=== PATIENT | male | born 1980 | race African-American/Black ===

== ENCOUNTER 2022-03-29 06:12 | Emergency (ER) | payer SELFPAY ==
--- NOTE | ~2022-03-29 | XR_ITS ---
EXAMINATION: XR CHEST CLINICAL INFORMATION: Pain COMPARISON: None TECHNIQUE: Frontal view of the chest was obtained. FINDINGS: Lungs are hypoinflated. No definite focal consolidation is seen. No evidence of pneumothorax, significant pleural effusion, or overt pulmonary edema. Cardiac silhouette appears somewhat prominent though may be accentuated by low lung volumes. No acute osseous findings are seen. XR/XR chest 1V IMPRESSION: Low lung volumes without definite acute findings.
--- NOTE | 2022-03-29 06:16 | ECG_ITS ---
Test Reason : CP Blood Pressure : / mmHG Vent. Rate : 092 BPM Atrial Rate : 092 BPM P-R Int : 160 ms QRS Dur : 084 ms QT Int : 350 ms P-R-T Axes : 045 -17 017 degrees QTc Int : 432 ms Normal sinus rhythm Minimal voltage criteria for LVH, may be normal variant ( R in aVL ) Septal infarct , age undetermined Abnormal ECG No previous ECGs available Referred By: Generic ED Physician Electronically Signed By:PHOEBE CHU
[2022-03-29 06:20] VITALS: BP 154/109; BP 160/103; PULSE 86; RESP 22; TEMP 37.2; O2SAT 97; O2SAT 98; BMI 33.7
--- NOTE | 2022-03-29 06:34 | ED.CHESTPAIN ---
HPI - Chest Pain General Chief Complaint: Chest Pain Stated Complaint: substernal chest pain Time Seen by Provider: 03/29/22 06:33 Source: patient Mode of arrival: EMS Limitations: no limitations History of Present Illness HPI narrative: 41 yo male hx of HTN on losartan and HCTZ hasn't taken his meds in a week as [place] is visiting [place], loop recorder due to arrhythmia , prior chest pain workup one year ago [facility] in [place] that he states was negative. He notes chest pain that is pressure radiating to his back x 3 days. Today he became dizzy with vomiting. He is on the phone in no distress. He notes this has happened before when his pressure is high. He doesn't have his medications with him. He notes the pain is moderate. He denies drug use to me specifically cocaine. MD complaint: chest pain Onset (ago): day(s) (3) Timing of current episode: constant Prior episodes: Yes Onset: during rest Pain location: substernal Pain radiation: back Severity: moderate Quality: other (pressure) Relieving factors: nothing Exacerbating factors: nothing Context: other (ran out of his BP medications 1 week ago ) Associated symptoms: nausea, vomiting and other (dizziness) Treatment prior to arrival: none Related Data Previous Rx's Medication Instructions Recorded hydrochlorothiazide 50 mg tablet 50 mg PO DAILY #30 tabs 03/29/22 losartan 100 mg tablet 100 mg PO DAILY #30 tabs 03/29/22 Allergies Allergy/AdvReac Type Severity Reaction Status Date / Time No Known Allergies Allergy Verified 03/29/22 06:42 Review of Systems Review of Systems: Constitutional : No Weight loss, No Fever, No Chills ENT/Mouth : No sore throat, No Rhinorrhea Eyes: No Eye Pain, No Swelling Cardiovascular : pos Chest Pain, no SOB, no Dyspnea on Exertion, No Orthopnea, No Edema, No Palpitations Respiratory : No Cough, No Sputum Gastrointestinal : pos Nausea, pos Vomiting, No Diarrhea, No abdominal Pain, No Hematochezia, No Melena Genitourinary : No Dysuria, No Urinary Frequency Musculoskeletal : No joint pain, No Myalgias, No Joint Swelling Skin : No Skin Lesions, No rash Neuro : No Weakness, No Numbness, pos Dizziness, No Headache Psych : No Anxiety/Panic, No Depression Heme/Lymph: No Bruising, No Lymphadenopathy Endocrine : No Polyuria, No Polydipsia All other systems reviewed and are negative [facility] Past Medical History Attestation statement: The following information was validated with the patient. Medical History Arrhythmia HTN (hypertension) Social History Social History Smoked in Last 30 Days: Yes Use of substances other than those prescribed or required for medical reasons: Yes Substance Use Type: Marijuana Advance Directives: Yes Advance Directives Information Provided: Yes Advance Directives on File: No Physical Exam Vital Signs: Vital Signs: Last Vital Signs Temp 99 F 03/29/22 06:40 Pulse 80 03/29/22 06:40 Resp 23 H 03/29/22 06:40 BP 146/98 H 03/29/22 06:40 Pulse Ox 98 03/29/22 06:40 O2 Del Method 03/29/22 06:40 BMI result Body Mass Index 33.7 Appearance: Alert. Oriented X3. No acute distress. on the phone no distress Eyes: Pupils equal, round and reactive to light. ENT: Pharynx normal. Neck: Normal inspection. Neck supple. CVS: Normal heart rate and rhythm. Pulses normal. Respiratory: No respiratory distress. Breath sounds normal. Abdomen: Soft and non-tender. bounding femoral pulses Skin: Skin warm and dry. Normal skin color. Normal skin turgor. Extremities: No lower extremity edema. No calf ttp Neuro: Oriented X 3. No motor deficit. No sensory deficit. Course Course Course Narrative: nonischemic EKG, trop flat , CXR negative labs looks good, BP down feels better, resting comfortably at bedside Medications Administered Discontinued Medications Generic Name Dose Route Start Last Admin Trade Name Darylq PRN Reason Stop Dose Admin Hydrochlorothiazide 25 mg 03/29/22 07:07 03/29/22 07:15 Hydrochlorothiazide 25 Mg Tablet PO 03/29/22 07:08 25 mg ONCE ONE Administration Protocol Hydrochlorothiazide 25 mg 03/29/22 07:08 03/29/22 07:15 Hydrochlorothiazide 25 Mg Tablet PO 03/29/22 07:09 25 mg ONCE ONE Administration Protocol Losartan Potassium 100 mg 03/29/22 06:42 03/29/22 07:16 Losartan Potassium 50 Mg Tablet PO 03/29/22 06:43 100 mg ONCE ONE Administration Protocol Ondansetron HCl 4 mg 03/29/22 06:42 03/29/22 07:16 Ondansetron Hcl 4 Mg/2 Ml Vial IVPUSH 03/29/22 06:43 4 mg ONCE ONE Administration Medical Decision Making Medical Decision Making [facility] Narrative: 41 yo male hx of HTN on losartan and HCTZ hasn't taken his meds in a week as he is [place], [place] recorder due to arrhythmia , prior chest pain here with chest pain and BP 150/100. He notes pain radiates to his back but he has bounding pulses and it has been going on for 3 days and he is on his phone in no distress dissection seems unlikely. He is PERC negative to PE is unlikely. Will need EKG, troponin x 1 given 3 days of constant pain, will try his home medications for blood pressure. States he has had these same symptoms when his BP has been high in the past with negative workup. Records from [facility] requested. Dispo per results and findings. Differential Diagnosis Differential Diagnoses: The differential diagnosis associated with the presentation includes chest pain, HTN urgency, anxiety, drug abuse, cardiomyopathy, less likely dissection given he notes no tearing pain - no distress on phone and bounding pulses with symptoms x 3 days Lab Data [facility] Lab Attestation statement: I reviewed the patient's lab results. troponin is 4.3 normal with 3 days of chest pain 03/29/22 06:38 03/29/22 06:38 Labs: Lab Results 03/29/22 03/29/22 03/29/22 Range/Units 06:38 06:38 06:38 WBC 6.9 (4.8-10.8) X10*3/uL RBC 4.87 (4.60-5.80) X10*6/uL Hgb 14.0 (14.0-18.0) g/dl Hct 43.2 (42.0-52.0) % MCV 88.7 (80.0-98.0) fL MCH 28.7 (27.0-33.0) pg MCHC 32.4 (31.0-36.0) g/dl RDW 14.4 (11.0-16.0) % Plt Count 161 (160-400) X10*3/uL MPV 10.6 (9.4-12.4) fL Immature Gran % (Auto) 0.3 (0.0-0.4) % Neut % (Auto) 89.6 H (45-73) % Lymph % (Auto) 5.1 L (20-40) % [place] % (Auto) 4.6 (2-11) % Eos % (Auto) 0.3 (0-4) % Baso % (Auto) 0.1 (0-2) % Lymph # (Auto) 0.4 L (1.2-4.9) X10*3/uL [place] # (Auto) 0.3 (0.1-1.2) X10*3/uL Eos # (Auto) 0.0 (0.0-0.4) X10*3/uL Baso # (Auto) 0.0 (0.0-0.2) X10*3/uL Abs Immat Gran (auto) 0.02 (0.00-0.03) X10*3/uL Absolute Neuts (auto) 6.2 (2.0-8.3) x10*3/uL Absolute Nucleated RBC 0.000 (0.0-0.012) X10*3/uL Nucleated RBC % (auto) 0.0 (0.0-0.2) /100WBC PT (10.0-13.1) SEC INR (0.9-1.1) Sodium 140 (135-145) mmol/L Potassium 3.9 (3.3-5.1) mmol/L Chloride 106 (96-108) mmol/L Carbon Dioxide 27 (22-29) mmol/L Anion Gap 11 L (12-20) BUN 8 L (9-16) mg/dL Creatinine 1.31 (0.5-1.4) mg/dL Estim Creat Clear Calc 102.5 Estimated GFR 60 Random Glucose 97 (60-115) mg/dL Calcium 9.1 (8.4-10.2) mg/dL Total Bilirubin 1.4 H (0.0-1.0) mg/dL Direct Bilirubin 0.4 (0.0-0.5) mg/dL AST 26 (5-37) U/L ALT 38 (0-40) U/L Alkaline Phosphatase 70 (39-117) U/L Troponin I High Sens 4.3 (<3.5-35.0) ng/L Total Protein 6.8 (6.5-8.0) g/dL Albumin 3.9 (3.5-5.0) g/dL Lipase 28 (8-78) U/L COVID-19 (LIANA) (Negative) COVID-19 Clin Com 03/29/22 03/29/22 Range/Units 07:12 07:12 WBC (4.8-10.8) X10*3/uL RBC (4.60-5.80) X10*6/uL Hgb (14.0-18.0) g/dl Hct (42.0-52.0) % MCV (80.0-98.0) fL MCH (27.0-33.0) pg MCHC (31.0-36.0) g/dl RDW (11.0-16.0) % Plt Count (160-400) X10*3/uL MPV (9.4-12.4) fL Immature Gran % (Auto) (0.0-0.4) % Neut % (Auto) (45-73) % Lymph % (Auto) (20-40) % [place] % (Auto) (2-11) % Eos % (Auto) (0-4) % Baso % (Auto) (0-2) % Lymph # (Auto) (1.2-4.9) X10*3/uL [place] # (Auto) (0.1-1.2) X10*3/uL Eos # (Auto) (0.0-0.4) X10*3/uL Baso # (Auto) (0.0-0.2) X10*3/uL Abs Immat Gran (auto) (0.00-0.03) X10*3/uL Absolute Neuts (auto) (2.0-8.3) x10*3/uL Absolute Nucleated RBC (0.0-0.012) X10*3/uL Nucleated RBC % (auto) (0.0-0.2) /100WBC PT 12.0 (10.0-13.1) SEC INR 1.0 (0.9-1.1) Sodium (135-145) mmol/L Potassium (3.3-5.1) mmol/L Chloride (96-108) mmol/L Carbon Dioxide (22-29) mmol/L Anion Gap (12-20) BUN (9-16) mg/dL Creatinine (0.5-1.4) mg/dL Estim Creat Clear Calc Estimated GFR Random Glucose (60-115) mg/dL Calcium (8.4-10.2) mg/dL Total Bilirubin (0.0-1.0) mg/dL Direct Bilirubin (0.0-0.5) mg/dL AST (5-37) U/L ALT (0-40) U/L Alkaline Phosphatase (39-117) U/L Troponin I High Sens (<3.5-35.0) ng/L Total Protein (6.5-8.0) g/dL Albumin (3.5-5.0) g/dL Lipase (8-78) U/L COVID-19 (LIANA) Negative (Negative) COVID-19 Clin Com See Note Independent Interpretation I performed an independent interpretation of an: EKG and Plain X-Ray (no acute findings) Interpretation: Rate: 92 Rhythm: NSR Arboles: left , LVH Normal P waves. Normal HENRIQUE. Normal QRS complex. poor R wave progression ST T wave : no MIRIAN, no ST depression, normal qTC: normal prior studies: no acute ischemia, no priors The study has been interpreted contemporaneously by me. . External Record Review External record reviewed: Outpatient record Prescription Management I considered prescription management with: Other (HCTZ and losartan BP medications) Chronic Conditions Patient?s care impacted by: Hypertension Social Determinants Patient?s care significantly limited by Social Determinants of Health including: Other Social Determinant of Health (does not have access to healthcare here - will need Rx for BP medications) Discharge Plan Discharge Clinical Impression: Chest pain Qualifiers: Chest pain type: unspecified Qualified Code(s): R07.9 - Chest pain, unspecified HTN (hypertension) Qualifiers: Hypertension type: primary hypertension Qualified Code(s): I10 - Essential (primary) hypertension Patient Disposition: Home, Self-Care Instructions: Chest Pain (ED), Chronic Hypertension (ED) Additional Instructions: return to ED for any worsening symptoms or concerns take your medications please get a primary care doctor in the area given your chronic medical conditions return for worsening symptoms chest pain, shortness of breath, numbness weakness or any other concerns. Prescriptions: New losartan 100 mg tablet 100 mg PO DAILY Qty: 30 0RF hydrochlorothiazide 50 mg tablet 50 mg PO DAILY Qty: 30 0RF
[2022-03-29 06:40] VITALS: BP 146/98; PULSE 80; PULSE 84; RESP 23; TEMP 37.2; O2SAT 98
[2022-03-29 06:42] LABS: MANUAL DIFF FLAG NO
[2022-03-29 06:43] LABS: Basophils Percent Auto 0.1 % (0-2); Eosinophils Percent Auto 0.3 % (0-4); Hematocrit 43.2 % (42.0-52.0); Imm Gran Abs Auto 0.02 X10*3/uL (0.00-0.03); Imm Gran Pct Auto 0.3 % (0.0-0.4); Lymphocytes Absolute Auto 0.4 X10*3/uL (1.2-4.9); Lymphocytes Percent Auto 5.1 % (20-40); Mean Corpuscular HGB Conc 32.4 g/dl (31.0-36.0); Mean Corpuscular Hemoglobin 28.7 pg (27.0-33.0); Mean Corpuscular Volume 88.7 fL (80.0-98.0); Mean Platelet Volume 10.6 fL (9.4-12.4); Monocytes Absolute Auto 0.3 X10*3/uL (0.1-1.2); Monocytes Percent Auto 4.6 % (2-11); Neutrophils Absolute Auto 6.2 x10*3/uL (2.0-8.3); Neutrophils Percent Auto 89.6 % (45-73); Platelet Count 161 X10*3/uL (160-400); Red Blood Count 4.87 X10*6/uL (4.60-5.80); Red Cell Distribution Width 14.4 % (11.0-16.0); White Blood Count 6.9 X10*3/uL (4.8-10.8)
[2022-03-29 07:01] LABS: Alanine Aminotransferase 38 U/L (0-40); Albumin Level 3.9 g/dL (3.5-5.0); Alkaline Phosphatase 70 U/L (39-117); Anion Gap 11 (12-20); Aspartate Amino Transferase 26 U/L (5-37); Bilirubin Direct 0.4 mg/dL (0.0-0.5); Bilirubin Total 1.4 mg/dL (0.0-1.0); Blood Urea Nitrogen 8 mg/dL (9-16); Calcium 9.1 mg/dL (8.4-10.2); Carbon Dioxide 27 mmol/L (22-29); Chloride 106 mmol/L (96-108); Creatinine Clr Calc Pharmacy 102.5; Estimated Glomerular Filt Rate 60; Glucose Random 97 mg/dL (60-115); Lipase 28 U/L (8-78); Potassium 3.9 mmol/L (3.3-5.1); Sodium 140 mmol/L (135-145); Total Protein 6.8 g/dL (6.5-8.0)
[2022-03-29 07:09] LABS: Troponin-I High Sensitivity 4.3 ng/L (<3.5-35.0)
[2022-03-29] MEDS: hydroCHLOROthiazide 25 MG TABLET PO ×2 (07:15)
[2022-03-29] MEDS: ondansetron HCL 4 MG/2 ML VIAL IVPUSH (07:16)
[2022-03-29] MEDS: Losartan Potassium 50 MG TABLET 100 MG PO (07:16)
[2022-03-29 07:37] LABS: COVID-19 Test Negative (Negative); IDNOW Serial# 16C4AD1C
[2022-03-29 07:40] LABS: Amphetamine Screen Urine Not Detected (Not Detect); Barbiturates, Urine Not Detected (Not Detect); Benzodiazepines Screen Urine Not Detected (Not Detect); Cannabinoid Screen Urine POSITIVE (Not Detect); Cocaine Screen Urine Not Detected (Not Detect); Fentanyl, urine Not Detected (Not Detect); Opiate Screen Urine Not Detected (Not Detect); Phencyclidine Screen Urine Not Detected (Not Detect)
[2022-03-29 08:00] VITALS: BP 116/78; PULSE 78
== END 2022-03-29 08:16 | disposition home or self-care (01) ==
PROVIDERS: Emergency Provider Emergency Medicine
DX: R07.89 Other chest pain (principal); R42 Dizziness and giddiness; I10 Essential (primary) hypertension; Z20.822 Contact with and (suspected) exposure to COVID-19; Z20.828 Contact with and (suspected) exposure to other viral communicable diseases; Z79.899 Other long term (current) drug therapy
CPT/HCPCS: 36415; 71045; 80048; 80076; 80307; 83690; 84484; 85025; 85610; 87635; 93005; 96374; 99284; 99285; J2405

== ENCOUNTER 2023-07-17 08:33 | Emergency (ER) | payer OTHER, SELFPAY ==
--- NOTE | ~2023-07-17 | XR_ITS ---
EXAMINATION: XR CHEST CLINICAL INFORMATION: Chest pain. COMPARISON: 03/29/2022 TECHNIQUE: 2 views of the chest were obtained. FINDINGS: Low lung volumes. No focal consolidation. No pleural effusion. Cardiac silhouette is unchanged. XR/XR chest 2V IMPRESSION: No acute abnormality.
--- NOTE | ~2023-07-17 | US_ITS ---
EXAMINATION: US VENOUS ULTRASOUND WITH DOPPLER LOWER EXTREMITY, LEFT CLINICAL INFORMATION: Calf pain. COMPARISON: None available. TECHNIQUE: Ultrasound of the deep veins is performed from the hip to the calf with compression sonography and color and pulse Doppler assessment. Spectral analysis with color-flow imaging is performed. FINDINGS: There is normal venous compression and respiratory variation and augmented flow. The visualized common femoral vein, superficial femoral vein, profunda femoral vein, popliteal vein, and the trifurcation region shows no evidence of deep venous thrombosis. If the patient's symptoms persist, followup ultrasound in 5 days 7 days might be of value to exclude proximal propagation from a non-visualized calf vein. US/US venous duplex LE LT IMPRESSION: No DVT demonstrated in the left lower extremity.
[2023-07-17 08:37] VITALS: BP 123/84; PULSE 86; RESP 18; TEMP 36.6; O2SAT 98; BMI 32.2
--- NOTE | 2023-07-17 08:43 | ECG_ITS ---
Test Reason : cp Blood Pressure : / mmHG Vent. Rate : 084 BPM Atrial Rate : 084 BPM P-R Int : 168 ms QRS Dur : 092 ms QT Int : 364 ms P-R-T Axes : 042 -13 012 degrees QTc Int : 430 ms Normal sinus rhythm Minimal voltage criteria for LVH, may be normal variant ( R in aVL ) Septal infarct (cited on or before 29-MAR-2022) Abnormal ECG When compared with ECG of 29-MAR-2022 06:18, Questionable change in initial forces of Septal leads Referred By: Generic ED Physician Electronically Signed By:YI PALACIO MD
[2023-07-17 08:56] LABS: MANUAL DIFF FLAG NO
[2023-07-17 08:57] LABS: Basophils Percent Auto 0.4 % (0-2); Eosinophils Absolute Auto 0.1 X10*3/uL (0.0-0.4); Hematocrit 41.8 % (42.0-52.0); Hemoglobin 14.4 g/dl (14.0-18.0); Lymphocytes Percent Auto 42.1 % (20-40); Mean Corpuscular HGB Conc 34.4 g/dl (31.0-36.0); Mean Corpuscular Hemoglobin 30.3 pg (27.0-33.0); Mean Corpuscular Volume 87.8 fL (80.0-98.0); Mean Platelet Volume 10.5 fL (9.4-12.4); Monocytes Absolute Auto 0.3 X10*3/uL (0.1-1.2); Monocytes Percent Auto 6.7 % (2-11); Neutrophils Absolute Auto 2.4 x10*3/uL (2.0-8.3); Neutrophils Percent Auto 49.8 % (45-73); Platelet Count 181 X10*3/uL (160-400); Red Blood Count 4.76 X10*6/uL (4.60-5.80); White Blood Count 4.8 X10*3/uL (4.8-10.8)
[2023-07-17 09:11] LABS: Anion Gap 12 (12-20); Blood Urea Nitrogen 14 mg/dL (9-16); Calcium 9.8 mg/dL (8.4-10.2); Carbon Dioxide 29 mmol/L (22-29); Chloride 104 mmol/L (96-108); Creatinine Clr Calc Pharmacy 97.4; Estimated Glomerular Filt Rate 59; Glucose Random 97 mg/dL (60-115); Potassium 3.2 mmol/L (3.3-5.1); Sodium 142 mmol/L (135-145)
[2023-07-17 09:21] LABS: Troponin-I High Sensitivity 2.9 ng/L (<3.5-35.0)
--- NOTE | 2023-07-17 09:28 | PC.NURSE ---
patient with insertable media monitor placed september 2021 device name Linq 2, in [facility]. Patient reports left side of his heart does not work right
[2023-07-17 09:32] VITALS: BP 114/72; PULSE 69; RESP 18; TEMP 36.6; O2SAT 95
--- NOTE | 2023-07-17 09:35 | ED_ITS ---
HPI - General Adult General Chief complaint: General Medical Stated complaint: L side body pain Time Seen by Provider: 07/17/23 09:35 Source: patient Mode of arrival: ambulatory Limitations: no limitations History of Present Illness HPI narrative: Patient is a 43-year-old male with history of hypertension, loop recorder presenting to the emergency department with complaint of pain to the left side of his torso radiating down his left leg for the past 4 days. States that he woke up with the pain. Denies any fall or other trauma. He complains of numbness/tingling to his anterior lower leg and foot. Reports pain to left calf. States he has taken Aleve, Tylenol, Rudi[place] with the pain is sharp and severe. States he has not seen a propeller mechanic in about 2 years, as he moved here from [place]. He is currently taking medication for his blood pressure. Denies any abdominal pain, nausea, vomiting, diarrhea, constipation. Denies shortness of breath, cough, fevers. He denies any known tick bites or rashes, states he does not spend time outdoors. MD complaint: left side pain Onset (ago): day(s) Radiation: distal Severity: severe Quality: sharp Pain Consistency: constant Relieving factors: none Exacerbating factors: movement Associated symptoms: other (numbness/tingling L lower leg) Treatments prior to arrival: NSAID and other Related Data Previous Rx's ?Medication ?Instructions ?Recorded hydrochlorothiazide 50 mg tablet 50 mg PO DAILY #30 tabs 03/29/22 losartan 100 mg tablet 100 mg PO DAILY #30 tabs 03/29/22 cyclobenzaprine 5 mg tablet 5 mg PO TID PRN muscle spasm #10 07/17/23 tabs lidocaine 5 % topical patch 1 patch topical DAILY #15 ea 07/17/23 Allergies Allergy/AdvReac Type Severity Reaction Status Date / Time No Known Allergies Allergy Verified 07/17/23 08:38 Review of Systems 2 Review of Systems: As per HPI. Yes all other systems are reviewed and are negative Constitutional: Constitutional: Reports as per HPI [facility] Past Medical History Medical History Arrhythmia HTN (hypertension) Social History Social History Alcohol intake: former Smoked in Last 30 Days: Yes Substance Use Type: Marijuana Substance Use Frequency: Chronic Longstanding Advance Directives: No Advance Directives Information Provided: Yes Physical Exam ED Vital Signs: Vital Signs - 24 hr 07/17/23 08:37 07/17/23 09:32 Temperature 98 F 98 F Pulse Rate 86 69 Respiratory Rate 18 18 Blood Pressure 123/84 114/72 Pulse Oximetry 98 95 Oxygen Delivery Method Room Air Room Air BMI result Body Mass Index 32.2 Vital signs have been reviewed and appear to be correct. Blood pressure normal. Heart rate normal. Respiratory rate normal. Temperature normal. Oxygen saturation normal. Const General: cooperative, healthy appearing and no acute distress Orientation/consciousness: oriented to person, oriented to place, oriented to time and patient oriented x3 Limitations: no limitations HENMT Head: Yes normocephalic and Yes atraumatic Ears: external ears normal General nose exam: Normal external nose present Face and sinus: Yes face symmetric Mouth: oropharynx normal and moist mucous membranes Throat: Yes uvula midline Eyes Pupils: Equal, round and reactive pupils present Neck Neck: Yes normal visual inspection, Yes no meningeal signs and Yes supple Chest Chest palpation & inspection: normal inspection of the chest and tenderness pectoral muscle on the left and costal cartilage left anterior-axillary line Resp Effort & Inspection: normal respiratory effort and able to speak in complete sentences Auscultation: clear to auscultation bilaterally Cardio Jugular venous distension: no JVD Rate: regular rate Rhythm: regular rhythm Heart sounds: S1 normal heart sound present and S2 normal heart sound present Peripheral pulses: Peripheral pulses 2+ throughout GI Palpation (GI): Soft to palpation and nontender Auscultation: normoactive bowel sounds General: Yes no CVA tenderness Back/Spine/Pelvis Back: no CVA tenderness Skin General skin exam: elasticity normal and turgor normal Neuro General: oriented to person, oriented to place, oriented to time, patient oriented x3, No gait normal (slight limp), tone normal, moves all extremities, Normal light touch and pain sensation, no meningeal signs, no focal motor deficits, CN's II-XI intact bilaterally and deep tendon reflexes 2+ bilaterally Cranial nerves: Yes Equal, round and reactive pupils present Cognition (Neuro): normal cognition Motor exam (neuro): 5/5 motor strength present throughout, Pronator motor function not present, no tremor noted, no asterixis, Motor fasciculations not present, Normal motor muscle tone present throughout and Motor abnormalities not present Extrem General: Yes normal to inspection, Yes full ROM, Yes capillary refill normal and Yes no pedal edema Right upper extremity: normal to inspection, full ROM and normal capillary refill Left upper extremity: normal to inspection, full ROM and normal capillary refill Right lower extremity: normal to inspection, full ROM and normal capillary refill Left lower extremity: normal to inspection, full ROM, normal capillary refill and lower leg Details: normal to inspection, tenderness Location: of the posterior calf and other (anterior lower leg) and no edema; no erythema, no localized swelling, no palpable cords and no unusual warmth Psych Mental Status: mental status grossly normal Affect: normal affect Thought process: Normal thought process present Medications Administered Discontinued Medications Generic Name Dose Route Start Last Admin Trade Name Freq PRN Reason Stop Dose Admin Ketorolac Tromethamine 30 mg 07/17/23 09:52 07/17/23 10:02 Ketorolac Tromethamine 30 Mg/Ml Vial IM 07/17/23 09:53 30 mg ONCE ONE Administration Potassium Chloride 20 meq 07/17/23 10:17 07/17/23 10:33 Potassium Chloride Er 20 Meq Tab.Er.Prt PO 07/17/23 10:18 20 meq ONCE ONE Administration Medical Decision Making Medical Decision Making MDM Narrative: Patient is a 43-year-old male with history of hypertension, loop recorder presenting to the emergency department with complaint of pain to the left side of his torso radiating down his left leg for the past 4 days. On exam patient is awake, A+Ox3, VS WNL, afebrile, normal neurological exam without focal deficits, physical exam findings as above. Given reported symptoms and physical exam findings, initial differential includes DVT, musculoskeletal pain, electrolyte abnormality. Unlikely pneumonia, pneumothorax, ACS. EKG shows normal sinus rhythm. Labs notable for mild hypokalemia, negative troponin, otherwise unremarkable. PO potassium ordered. X-ray chest notable for no evidence of cardiomegaly, pneumonia, pneumothorax, or other acute abnormality. No evidence of DVT left lower extremity ultrasound. My interpretation is in agreement with the radiologist's interpretation. Results discussed with patient and all questions answered. Advised patient he may need to alternate medications such as Tylenol and ibuprofen every 3 hours for better pain control. Patient feels his symptoms would improve with a muscle relaxer, will discharge with prescription for cyclobenzaprine and topical lidocaine patches. Patient does not currently have a primary care provider or propeller mechanic in this area. Patient provided with resources for establishing care with both. Return precautions discussed at bedside. Patient verbalized understanding of and agreement plan. Differential Diagnosis Differential Diagnoses: The differential diagnosis associated with the presentation includes As per [facility]. Admission/Observation Consideration of admission/observation: Escalation of care including admission/observation considered Patient would have been admitted to the hospital had their work up had any findings where hospital admission was appropriate and their clinical presentation warranted hospital admission. Lab Data [facility] Lab Attestation statement: I reviewed the patient's lab results. As per MDM. 07/17/23 08:51 07/17/23 08:51 Labs: Lab Results 07/17/23 Range/Units 08:51 WBC 4.8 (4.8-10.8) X10*3/uL RBC 4.76 (4.60-5.80) X10*6/uL Hgb 14.4 (14.0-18.0) g/dl Hct 41.8 L (42.0-52.0) % MCV 87.8 (80.0-98.0) fL MCH 30.3 (27.0-33.0) pg MCHC 34.4 (31.0-36.0) g/dl RDW 13.0 (11.0-16.0) % Plt Count 181 (160-400) X10*3/uL MPV 10.5 (9.4-12.4) fL Immature Gran % (Auto) 0.0 (0.0-0.4) % Neut % (Auto) 49.8 (45-73) % Lymph % (Auto) 42.1 H (20-40) % [place] % (Auto) 6.7 (2-11) % Eos % (Auto) 1.0 (0-4) % Baso % (Auto) 0.4 (0-2) % Lymph # (Auto) 2.0 (1.2-4.9) X10*3/uL [place] # (Auto) 0.3 (0.1-1.2) X10*3/uL Eos # (Auto) 0.1 (0.0-0.4) X10*3/uL Baso # (Auto) 0.0 (0.0-0.2) X10*3/uL Abs Immat Gran (auto) 0.00 (0.00-0.03) X10*3/uL Absolute Neuts (auto) 2.4 (2.0-8.3) x10*3/uL Absolute Nucleated RBC 0.000 (0.0-0.012) X10*3/uL Nucleated RBC % (auto) 0.0 (0.0-0.2) /100WBC Sodium 142 (135-145) mmol/L Potassium 3.2 L (3.3-5.1) mmol/L Chloride 104 (96-108) mmol/L Carbon Dioxide 29 (22-29) mmol/L Anion Gap 12 (12-20) BUN 14 (9-16) mg/dL Creatinine 1.32 (0.5-1.4) mg/dL Estim Creat Clear Calc 97.4 Estimated GFR 59 Random Glucose 97 (60-115) mg/dL Calcium 9.8 D (8.4-10.2) mg/dL Troponin I High Sens 2.9 (<3.5-35.0) ng/L Independent Interpretation I performed an independent interpretation of an: EKG (Normal sinus rhythm, rate 84 beats per minute, normal MI interval and QTC), Plain X-Ray and Ultrasound Interpretation: X-ray chest notable for no evidence of cardiomegaly, pneumonia, pneumothorax, or other acute abnormality. No DVT on left lower extremity ultrasound. Radiology Impression Discussion of test interpretation with radiology: I have reviewed the radiologist's reading. Radiologist Impression: XR/XR chest 2V IMPRESSION: No acute abnormality. US/US venous duplex LE LT IMPRESSION: No DVT demonstrated in the left lower extremity. External Record Review External record reviewed: Inpatient record, Office record and Outpatient record Prescription Management I considered prescription management with: Pain Medication and Other Discharge Plan Discharge Clinical Impression: Left-sided chest pain, Left leg pain Patient Disposition: Home, Self-Care Instructions: Noncardiac Chest Pain (ED), Leg Pain (ED) Additional Instructions: You were evaluated in the emergency department today for left-sided pain. Your evaluation did not reveal evidence of conditions requiring emergent medical treatment at this time. You are being prescribed cyclobenzaprine which is a muscle relaxer that you can take every 8 hours as needed. You are also being prescribed topical lidocaine patches before which you can wear for up to 12 hours in a 24 hour period, do not apply heat directly over the patches. It is important that you establish care with a primary care provider in your provided with resources for this in the emergency department today. It is also important that you establish care with a propeller mechanic in this area, you are being referred to [facility] Cardiology, please call their office to schedule an appointment. Return to the emergency department if you develop increasing pain, difficulty breathing or shortness of breath, dizziness or lightheadedness, change of color in your extremities or any other concerning symptoms. Prescriptions: New lidocaine 5 % adhesive patch,medicated 1 patch topical DAILY Qty: 15 0RF Rx Instructions: leave on most painful area for up to 12 hrs cyclobenzaprine 5 mg tablet 5 mg PO TID PRN (Reason: muscle spasm) Qty: 10 0RF No Action losartan 100 mg tablet 100 mg PO DAILY Qty: 30 0RF hydrochlorothiazide 50 mg tablet 50 mg PO DAILY Qty: 30 0RF Referrals: [facility] Cardiovascular Services [Provider Group] Print Language: Nigerian
[2023-07-17] MEDS: Ketorolac Tromethamine 30 MG/ML VIAL IM (10:02)
[2023-07-17] MEDS: Potassium Chloride ER 20 MEQ TAB.ER.PRT PO (10:33)
[2023-07-17 12:38] VITALS: BP 114/72; PULSE 69; RESP 18; TEMP 36.6; O2SAT 95
== END 2023-07-17 12:39 | disposition home or self-care (01) ==
PROVIDERS: Emergency Provider Emergency Medicine
DX: R07.89 Other chest pain (principal); M79.10 Myalgia, unspecified site; M79.605 Pain in left leg; R60.0 Localized edema; Z79.899 Other long term (current) drug therapy
CPT/HCPCS: 36415; 71046; 80048; 84484; 85025; 93005; 93971; 96372; 99284; J1885

== ENCOUNTER → 2023-07-17 08:43 | Outpatient (BNV) | payer MEDICAID, SELFPAY | PROVIDERS: Emergency Provider Emergency Medicine; Visit Provider Internal Medicine Cardiovascular Disease | DX: R94.31 Abnormal electrocardiogram [ECG] [EKG] (principal) | CPT/HCPCS: 93010 ==

== ENCOUNTER 2023-09-23 17:23 | Emergency (ER) | payer OTHER, SELFPAY ==
--- NOTE | ~2023-09-23 | CT_ITS ---
EXAMINATION: CT ABDOMEN AND PELVIS WITH CONTRAST CLINICAL INFORMATION: Bilateral lower abdominal pain and tenderness COMPARISON: None available. TECHNIQUE: Multidetector volumetric images were obtained from the superior aspect of the liver through the pubic symphysis following administration 85 mL of Omnipaque 350 intravenous contrast. Sagittal and coronal reformatted images were obtained on the technologist's workstation. Oral contrast: No This CT examination was performed using dose optimization techniques as appropriate, variously including the following: *Automated exposure control *Adjustment of mA and/or kV according to patient size (this includes techniques or standardized protocols for targeted exams where dose is matched to indication/reason for exam; i.e. extremities or head) *Use of iterative reconstruction technique DLP: 661 mGy-cm FINDINGS: LUNG BASES: The visualized lung bases are unremarkable. LIVER, GALLBLADDER, AND BILIARY TREE: The liver is normal in size, shape, and attenuation. No focal hepatic lesion or biliary ductal dilatation is present. The gallbladder is unremarkable with no evidence of radiopaque gallstones, gallbladder wall thickening, or obvious pericholecystic inflammatory changes. PANCREAS: Unremarkable. SPLEEN: Unremarkable. ADRENAL GLANDS: Unremarkable. KIDNEYS AND URETERS: The kidneys are normal in size, shape, and attenuation. No hydronephrosis, hydroureter, or calculi seen. No perinephric stranding. BLADDER: Unremarkable. GASTROINTESTINAL TRACT: The small and large bowel are unremarkable. The appendix is unremarkable. ABDOMINAL WALL: Small fat-containing umbilical hernia. LYMPH NODES: Normal. VASCULAR: Unremarkable. PELVIC VISCERA: Prostate gland is moderately enlarged. OSSEOUS STRUCTURES: Unremarkable. CT/CT abdomen pelvis w IV con IMPRESSION: 1. No acute process. 2. Small fat-containing umbilical hernia. 3. Prostate gland is moderately enlarged.
[2023-09-23 17:25] VITALS: BP 134/86; PULSE 77; RESP 16; TEMP 36.8; O2SAT 97; BMI 32.3
[2023-09-23 17:46] LABS: Appearance Urine Clear; Color Urine Yellow; Glucose Urine UA Negative (Negative); Leukocyte Esterase Urine Moderate (2+) (Negative); Nitrite Urine Negative (Negative); PH 7.5 (5.0-9.0); UMIC TRIGGER UACC YES; Urine Blood Negative (Negative); Urine Ketones Negative (Negative); Urine Protein Negative (Neg-Trace)
[2023-09-23 17:51] LABS: Bacteria Urine None Seen (None Seen); Hyaline Casts Urine 0-2 /LPF (0-2); RBC Urine 0-2 /HPF (0-2); Squamous Epithelial Cell Urine 0-2 /HPF (0-2); UACC Culture Trigger YES; WBC Urine >50 /HPF (0-5)
--- NOTE | 2023-09-23 18:00 | ED_ITS ---
HPI - General Adult General Chief complaint: Abdominal Pain Stated complaint: side pain/both Time Seen by Provider: 09/23/23 18:00 History of Present Illness ED Provider: Merry MENDOZA narrative: The patient is a 43-year-old man who says that for the last week he has had a sense of difficulty urinating. He also feels that he has had trouble passing bowel movements. He has had no numbness or tingling or weakness in his legs. He has not had any fevers. He has never had a urinary tract infection in the past. He is circumcised. He says that he has only 1 sexual partner and that they are monogamous with each other. The patient has a loop recorder that he says was implanted in 2020 at a hospital in [facility]. He also has had an episode of having surgery on his right arm. He says that he walks with a limp. Related Data Previous Rx's ?Medication ?Instructions ?Recorded hydrochlorothiazide 50 mg tablet 50 mg PO DAILY #30 tabs 03/29/22 losartan 100 mg tablet 100 mg PO DAILY #30 tabs 03/29/22 cyclobenzaprine 5 mg tablet 5 mg PO TID PRN muscle spasm #10 07/17/23 tabs lidocaine 5 % topical patch 1 patch topical DAILY #15 ea 07/17/23 hydrochlorothiazide 25 mg tablet 25 mg PO DAILY #30 tabs 09/23/23 levofloxacin 500 mg tablet 500 mg PO DAILY #14 tabs 09/23/23 Allergies Allergy/AdvReac Type Severity Reaction Status Date / Time No Known Allergies Allergy Verified 09/23/23 17:27 Review of Systems 2 Review of Systems: Yes all other systems are reviewed and are negative PENDING SALE TO [facility] Past Medical History Medical History Arrhythmia HTN (hypertension) Social History Social History Alcohol intake: former Smoked in Last 30 Days: No Use of substances other than those prescribed or required for medical reasons: No Substance Use Type: Marijuana Advance Directives: No Advance Directives Information Provided: No Do you have a plan to hurt others: No Plan Physical Exam ED Vital Signs: Vital Signs - 24 hr 09/23/23 17:25 09/23/23 22:00 09/23/23 23:09 Temperature 98.3 F 97.8 F 97.8 F Pulse Rate 77 54 54 Respiratory Rate 16 16 16 Blood Pressure 134/86 124/78 124/78 Pulse Oximetry 97 99 99 Oxygen Delivery Method Room Air Room Air Room Air BMI result Body Mass Index 32.3 Const Other: The patient has a large and muscular 43-year-old. He does not appear in obvious distress. HENMT Other: Face is symmetrical. Mucous membranes moist. Eyes Other: Pupils are round equal, conjunctivae are clear Neck Other: No JVD, moving his neck easily Chest Chest palpation & inspection: normal inspection of the chest Breast/axilla palpation: normal palpation of the breasts Resp Effort & Inspection: normal respiratory effort Auscultation: clear to auscultation bilaterally Cardio Rate: regular rate Rhythm: regular rhythm Heart sounds: S1 normal heart sound present and S2 normal heart sound present GI Other: The patient has diffuse tenderness across his lower abdomen. Rectal exam revealed prostatic tenderness. Other: The patient is a circumcised male with unremarkable external genitalia. Skin Other: Skin is dry and unremarkable Neuro Other: The patient is awake and alert with a normal mental status. Cranial nerves are grossly intact. He moves all extremities normally with normal sensation. He is grossly neurologically intact Extrem Other: No peripheral edema Medications Administered Discontinued Medications Generic Name Dose Route Start Last Admin Trade Name Freq PRN Reason Stop Dose Admin Sodium Chloride 1,000 mls @ 999 mls/hr 09/23/23 18:15 09/23/23 21:11 Ns IV 09/23/23 19:15 Infused .Q1H1M STEVEN Infusion Ceftriaxone Sodium 1 gm/ 50 mls @ 100 mls/hr 09/23/23 20:21 09/23/23 21:00 Sodium Chloride IV 09/23/23 20:50 Infused ONCE ONE Infusion Iohexol 100 ml 09/23/23 19:27 09/23/23 19:28 Iohexol 350 Mg/Ml 100 Ml Infus..Btl IV 09/23/23 19:28 85 ml ONCE ONE Administration Ketorolac Tromethamine 10 mg 09/23/23 20:21 09/23/23 20:28 Ketorolac Tromethamine 15 Mg/Ml Vial IVPUSH 09/23/23 20:22 10 mg ONCE ONE Administration Levofloxacin 500 mg 09/23/23 20:52 09/23/23 21:17 Levofloxacin 500 Mg Tablet PO 09/23/23 20:53 500 mg ONCE ONE Administration Lidocaine HCl 10 ml 09/23/23 21:42 09/23/23 22:18 Lidocaine Hcl 2 % Urojet 10 Ml Jel.Pf.Demarcus TOPICAL 09/23/23 21:43 10 ml ONCE ONE Administration Phenazopyridine HCl 200 mg 09/23/23 20:52 09/23/23 21:17 Phenazopyridine Hcl 200 Mg Tablet PO 09/23/23 20:53 200 mg ONCE ONE Administration Procedures Catheter Insertion (Urinary) Date of insertion: 09/23/23 Time of insertion: 23:00 Reason for placing: Yes Reason for placing indwelling catheter: Acute urinary retention Bladder scan/ultrasound used before catheterization: Yes Estimated amount of urine (mLs): 600 Antiseptic solution prep: Povidone-Iodine Topical anesthesia used: Yes Catheter type/location: Urethral Size (Prydeinig): 16 Catheter balloon size (mL): 5 Catheter balloon amount: 5 Results: successfully catheterized-immediate flow Procedure performed: without complications Medical Decision Making Medical Decision Making MDM Narrative: The patient is a 43-year-old male who presents with difficulty urinating. He was able to produce a urine specimen initially and this looks like he probably had a UTI. Was also able to produce a small 2nd urine specimen which was sent for GC and chlamydia. The patient looks quite uncomfortable however and ultimately it seemed like he was distinctly retaining urine. He had had a negative CT of the abdomen and pelvis (this showed a large prostate but no definite acute findings). Since ultimately the patient seemed really unable to void and looked extremely uncomfortable to having a urinary catheter placed. Under usual sterile conditions and using a Uro jet I placed a 16 Prydeinig urinary catheter with a good return of urine and complete relief for the patient. The patient had prostatic tenderness on rectal exam. Perhaps this patient has prostatitis although he does not have a fever or a white count. The patient had initially been given 1 g of ceftriaxone IV but he was also given 500 mg of levofloxacin orally. He will be discharged with 2 weeks of levofloxacin 500 mg daily. He does not have a local doctor. He is referred Urology. He also requested that I provide a prescription to allow him to continue his usual hydrochlorothiazide. I wrote for 25 mg of hydrochlorothiazide for 1 month. Lab Data 09/23/23 18:24 09/23/23 18:24 Labs: Lab Results 09/23/23 09/23/23 Range/Units 17:38 18:24 WBC 5.1 (4.8-10.8) X10*3/uL RBC 4.42 L (4.60-5.80) X10*6/uL Hgb 12.9 L (14.0-18.0) g/dl Hct 38.7 L (42.0-52.0) % MCV 87.6 (80.0-98.0) fL MCH 29.2 (27.0-33.0) pg MCHC 33.3 (31.0-36.0) g/dl RDW 12.9 (11.0-16.0) % Plt Count 202 (160-400) X10*3/uL MPV 10.7 (9.4-12.4) fL Immature Gran % (Auto) 0.8 H (0.0-0.4) % Neut % (Auto) 54.1 (45-73) % Lymph % (Auto) 36.1 (20-40) % Hayes % (Auto) 7.6 (2-11) % Eos % (Auto) 0.8 (0-4) % Baso % (Auto) 0.6 (0-2) % Lymph # (Auto) 1.9 (1.2-4.9) X10*3/uL Hayes # (Auto) 0.4 (0.1-1.2) X10*3/uL Eos # (Auto) 0.0 (0.0-0.4) X10*3/uL Baso # (Auto) 0.0 (0.0-0.2) X10*3/uL Abs Immat Gran (auto) 0.04 H (0.00-0.03) X10*3/uL Absolute Neuts (auto) 2.8 (2.0-8.3) x10*3/uL Absolute Nucleated RBC 0.000 (0.0-0.012) X10*3/uL Nucleated RBC % (auto) 0.0 (0.0-0.2) /100WBC Sodium 141 (135-145) mmol/L Potassium 3.5 (3.3-5.1) mmol/L Chloride 109 H (96-108) mmol/L Carbon Dioxide 22 (22-29) mmol/L Anion Gap 14 (12-20) BUN 10 (9-16) mg/dL Creatinine 1.20 (0.5-1.4) mg/dL Estim Creat Clear Calc 107.2 Estimated GFR > 60 Random Glucose 87 (60-115) mg/dL Calcium 9.1 D (8.4-10.2) mg/dL Total Bilirubin 0.7 (0.0-1.0) mg/dL Direct Bilirubin 0.2 (0.0-0.5) mg/dL AST 23 (5-37) U/L ALT 19 (0-40) U/L Alkaline Phosphatase 60 (39-117) U/L C-Reactive Protein 0.24 (< or = 0.50) mg/dL Total Protein 7.0 (6.5-8.0) g/dL Albumin 3.7 (3.5-5.0) g/dL Lipase 47 (8-78) U/L Urine Color Yellow Urine Appearance Clear Urine pH 7.5 (5.0-9.0) Ur Specific Amber 1.010 (1.005-1.025) Urine Protein Negative (Neg-Trace) mg/dL Urine Glucose (UA) Negative (Negative) mg/dL Urine Ketones Negative (Negative) mg/dL Urine Blood Negative (Negative) Urine Nitrite Negative (Negative) Ur Leukocyte Esterase Moderate (2+) H (Negative) Urine RBC 0-2 (0-2) /HPF Urine WBC >50 H (0-5) /HPF Ur Squamous Epith Cells 0-2 (0-2) /HPF Urine Bacteria None Seen (None Seen) Hyaline Casts 0-2 (0-2) /LPF Discharge Plan Discharge Clinical Impression: Acute prostatitis, Acute urinary retention Patient Disposition: Home, Self-Care Instructions: Prostatitis (ED), Kamara Catheter Placement and Care (ED) Additional Instructions: You seemed to have urine infection which caused you to retain urine so that you needed a catheter. I think the infection may be related to your prostate gland. This can be called prostatitis. Please take the antibiotic levofloxacin daily. Please plan on contacting the urology office on Monday morning to make a follow up appointment to see how you are doing and to discuss when you might be able to get the catheter removed. Also work on getting a new primary care doctor. You may try the [facility]. I have also sent a prescription for your regular blood pressure medication, hydrochlorothiazide. Return to the emergency room if significantly worse. Prescriptions: New levofloxacin 500 mg tablet 500 mg PO DAILY Qty: 14 0RF hydrochlorothiazide 25 mg tablet 25 mg PO DAILY Qty: 30 0RF No Action losartan 100 mg tablet 100 mg PO DAILY Qty: 30 0RF hydrochlorothiazide 50 mg tablet 50 mg PO DAILY Qty: 30 0RF lidocaine 5 % adhesive patch,medicated 1 patch topical DAILY Qty: 15 0RF Rx Instructions: leave on most painful area for up to 12 hrs cyclobenzaprine 5 mg tablet 5 mg PO TID PRN (Reason: muscle spasm) Qty: 10 0RF Referrals: [facility] [Provider Group] (Needs new PCP) Isabelle Hays MD [Physician] - (possible prostatitis, urinary retention) Interventions: ED Discharge Assessment Last Done: 09/23/23 23:09 Discharge Date/Time: 09/23/23 23:10 Print Language: Icelandic
--- NOTE | 2023-09-23 18:07 | ECG_ITS ---
Test Reason : PALPITATIONS Blood Pressure : / mmHG Vent. Rate : 055 BPM Atrial Rate : 055 BPM P-R Int : 206 ms QRS Dur : 086 ms QT Int : 406 ms P-R-T Axes : 068 -12 012 degrees QTc Int : 388 ms Sinus bradycardia with sinus arrhythmia Otherwise normal ECG When compared with ECG of 17-JUL-2023 08:43, Vent. rate has decreased BY 29 BPM Referred By: Branden Sousa Electronically Signed By:YI PALACIO MD
[2023-09-23] MEDS: 0.9 % Sodium Chloride 1,000 ML 999 ML IV (18:25)
[2023-09-23 18:28] LABS: MANUAL DIFF FLAG NO
--- NOTE | 2023-09-23 18:29 | PC.NURSE ---
a&ox4. vss and up to date. pt from triage d/t not being able to have a BM and difficulty urinating x 1 week. pt verbalizing he needs to strain in order to urinate. bladder scan/PVR scan preformed in triage. good effect noted. abd distention noted. abd tender w/ palpation. pt denies any fever/chills. 20gIV placed in the left AC - labs obtained/sent to lab. IVF administered per provider order. pt waiting for CT to be completed at this time. plan of care ongoing. call lau placed within reach.
[2023-09-23 18:44] LABS: Basophils Percent Auto 0.6 % (0-2); Eosinophils Percent Auto 0.8 % (0-4); Hematocrit 38.7 % (42.0-52.0); Hemoglobin 12.9 g/dl (14.0-18.0); Imm Gran Abs Auto 0.04 X10*3/uL (0.00-0.03); Imm Gran Pct Auto 0.8 % (0.0-0.4); Lymphocytes Absolute Auto 1.9 X10*3/uL (1.2-4.9); Lymphocytes Percent Auto 36.1 % (20-40); Mean Corpuscular HGB Conc 33.3 g/dl (31.0-36.0); Mean Corpuscular Hemoglobin 29.2 pg (27.0-33.0); Mean Corpuscular Volume 87.6 fL (80.0-98.0); Mean Platelet Volume 10.7 fL (9.4-12.4); Monocytes Absolute Auto 0.4 X10*3/uL (0.1-1.2); Monocytes Percent Auto 7.6 % (2-11); Neutrophils Absolute Auto 2.8 x10*3/uL (2.0-8.3); Neutrophils Percent Auto 54.1 % (45-73); Platelet Count 202 X10*3/uL (160-400); Red Blood Count 4.42 X10*6/uL (4.60-5.80); Red Cell Distribution Width 12.9 % (11.0-16.0); White Blood Count 5.1 X10*3/uL (4.8-10.8)
[2023-09-23 18:56] LABS: Alanine Aminotransferase 19 U/L (0-40); Albumin Level 3.7 g/dL (3.5-5.0); Alkaline Phosphatase 60 U/L (39-117); Anion Gap 14 (12-20); Aspartate Amino Transferase 23 U/L (5-37); Bilirubin Direct 0.2 mg/dL (0.0-0.5); Bilirubin Total 0.7 mg/dL (0.0-1.0); Blood Urea Nitrogen 10 mg/dL (9-16); C Reactive Protein 0.24 mg/dL (< or = 0.50); Calcium 9.1 mg/dL (8.4-10.2); Carbon Dioxide 22 mmol/L (22-29); Chloride 109 mmol/L (96-108); Creatinine Clr Calc Pharmacy 107.2; Estimated Glomerular Filt Rate > 60; Glucose Random 87 mg/dL (60-115); Lipase 47 U/L (8-78); Potassium 3.5 mmol/L (3.3-5.1); Sodium 141 mmol/L (135-145)
[2023-09-23] MEDS: iohexoL 350 MG/ML 100 ML INFUS..BTL IV (19:28)
--- NOTE | 2023-09-23 20:02 | PC.NURSE ---
pt reporting difficulty urinating. bladder scan showed 315 mL urine in bladder. pt reporting lower abd pain. MD made aware.
[2023-09-23] MEDS: Ketorolac Tromethamine 15 MG/ML VIAL 10 MG IVPUSH (20:28)
[2023-09-23] MEDS: cefTRIAXone sodium 1 GM in 0.9 % Sodium Chloride 50 ML IV (20:29)
--- NOTE | 2023-09-23 20:34 | PC.NURSE ---
pt medicated per mar with pain meds and abx. no blood cultures needed per md. pt attempting to obtain dirty urine for ctng sample. after previous bladder scan pt reported able to urinate bloody urine md aware.
[2023-09-23] MEDS: levoFLOXacin 500 MG TABLET PO (21:17)
[2023-09-23] MEDS: Phenazopyridine HCL 200 MG TABLET PO (21:17)
[2023-09-23 22:00] VITALS: BP 124/78; PULSE 54; RESP 16; TEMP 36.6; O2SAT 99
[2023-09-23] MEDS: Lidocaine HCl 2 % Urojet 10 ML JEL.PF.APP TOPICAL (22:18)
--- NOTE | 2023-09-23 23:06 | PC.NURSE ---
16fr todd cathether with 10ML balloon inserted by as pt did not feel comfortable with female staff. pt tolerated well and draining orange clear urine. pt reports pain improved significantly. todd bag switched to leg bag per pt request and educated on cleaning/emptying todd bags. pt verbalizes understanding to follow up with urology and finish abx course.
[2023-09-23 23:09] VITALS: BP 124/78; PULSE 54; RESP 16; TEMP 36.6; O2SAT 99
[2023-09-24 09:11] LABS: CT PCR DETECTED (Not Detect.); NG PCR NOT DETECTED (Not Detect.)
== END 2023-09-23 23:10 | disposition home or self-care (01) ==
PROVIDERS: Emergency Provider Emergency Medicine
DX: A74.9 Chlamydial infection, unspecified (principal); N41.0 Acute prostatitis; R33.9 Retention of urine, unspecified; I10 Essential (primary) hypertension
CPT/HCPCS: 36415; 51702; 51798; 74177; 80048; 80076; 81001; 83690; 85025; 86140; 87086; 87491; 87591; 93005; 96361; 96365; 96374; 99284; 99285; J0696; J1885; Q9967

== ENCOUNTER → 2023-09-23 18:07 | Outpatient (BNV) | payer OTHER, MEDICAID, SELFPAY | PROVIDERS: Emergency Provider Emergency Medicine; Visit Provider Internal Medicine Cardiovascular Disease | DX: R00.2 Palpitations (principal) | CPT/HCPCS: 93010 ==

== ENCOUNTER 2023-09-28 10:24 | Outpatient (AMB) | payer OTHER, SELFPAY ==
--- NOTE | 2023-09-28 10:27 | MHC.OFFVIS ---
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 He is seen for the following urologic conditions - urinary retention Episode of prostatitis Seen in the emergency room Chlamydia on PCR. Has been treated with doxycycline Kamara catheter placed for 500 cc Here today for removal of catheter Three-month follow-up nurse-practitioner Given alfuzosin [facility] Medical History Arrhythmia HTN (hypertension) Social History Alcohol intake: former Substance Use Type: Marijuana Review of Systems Const Denies chills and Denies fever(s) Card Reports no additional complaints and Denies syncope Resp Denies cough GI Denies abdominal pain and Denies heartburn Reports as per HPI and Denies change in libido Neuro Denies syncope Psych Denies change in libido Endo Denies change in libido Physical Exam Const General: cooperative, healthy appearing, comfortable and no acute distress Orientation/consciousness: patient oriented x3 HEENT Face and sinus: Yes normal facial exam Mouth: moist mucous membranes Neck Neck: Yes normal visual inspection, Yes full ROM and Yes trachea midline Chest Chest palpation & inspection: normal inspection of the chest Resp Effort & Inspection: normal respiratory effort, able to speak in complete sentences and no respiratory distress GI Inspection: Yes normal to inspection Back/Spine/Pelvis Cervical Spine: normal cervical lordosis Thoracic/Lumbar Spine: thoracic and lumbar spine normal to inspection Skin General skin exam: no rashes or lesions noted Neuro General: patient oriented x3, gait normal, tone normal and moves all extremities Extrem General: Yes normal to inspection and Yes capillary refill normal Office Procedures Bladder/Catheter Procedure Details: Patient presents to office for voiding trial visit s/p hospitalization. 120 mls sterile water instilled through catheter. 16 fr catheter removed, patient tolerated well. Patient able to void but mistakenly voided into toilet and not urinal. LA to room to bladder scan 16 49323-[id number] of Bladder Procedure code (CPT) selection complete Post Void Residual Post Residual Void Post Void Residual (PVR): 0 [id number]-[id number] Void Residual by ultrasound Assessment & Plan Assessment & Plan (1) Urinary retention with incomplete bladder emptying: Code(s): R33.9 - Retention of urine, unspecified Category: Medical Plan Three-month follow-up nurse-practitioner Orders: Orders AMB Bladder/Catheter Procedure Today R33.8 - Other retention of urine AMB Post Void Residual by ultrasound Today R33.8 - Other retention of urine Medications: New alfuzosin ER administer after the same meal each day 10 mg PO BEDTIME 90 days 90 tabs 1RF N13.8 - Other obstructive and reflux uropathy, N40.1 - Benign prostatic hyperplasia with lower urinary tract symptoms, R33.9 - Retention of urine, unspecified Patient Instructions: Imaging studies, laboratory and physical exam results were discussed and reviewed in detail. No major barriers to patient understanding were identified. An opportunity to ask questions regarding the treatment plan was provided. All questions were answered. The patient expressed understanding and agreement with the above treatment plan. The patient is aware they should contact our office by phone for worsening of their current condition or the appearance of new urologic symptoms. Compliance is encouraged with any medications and followup testing that is ordered. It is a privilege to participate in the urologic care of your patient. If you have any questions or concerns regarding treatment for the above conditions, or other urologic issues, please do not hesitate to contact me. The office telephone contact is [phone]. This note is constructed using voice recognition software. While every effort has been made to ensure accuracy precision grinder external errors may have been included. Yours sincerely, Dr Erick Lopes MD, [facility] - Urology Providers of Expert, Compassionate Care for the Genitourinary System Coding Level of Care Code New Pt Level 4 (17098) Diagnoses Urinary retention with incomplete bladder emptying R33.9 CPT Codes Bladder/Catheter Procedure - CPT: 60679-Lpbudubysf of Bladder ([id number]) Post Residual Void - PVR CPT Code: 21644-Qyzg Void Residual by ultrasound ([id number])
== END 2023-09-28 11:11 | disposition home or self-care (01) ==
PROVIDERS: Visit Provider Urology
DX: R33.9 Retention of urine, unspecified (principal)
CPT/HCPCS: 51700; 99204

== ENCOUNTER → 2023-09-28 10:24 | Outpatient (BNVA) | payer OTHER, MEDICAID, SELFPAY | PROVIDERS: Visit Provider Urology | DX: R33.9 Retention of urine, unspecified (principal) | CPT/HCPCS: 51700; 51798; 99202 ==

== ENCOUNTER 2023-12-22 22:28 | Emergency (ER) | payer OTHER, SELFPAY ==
--- NOTE | ~2023-12-22 | XR_ITS ---
EXAMINATION: XR FOREARM, RIGHT XR HAND/WRIST, RIGHT CLINICAL INFORMATION: Pain following injury. COMPARISON: None. TECHNIQUE: AP and lateral views of the right forearm. PA, oblique, and lateral views of the right hand and wrist. FINDINGS: Right forearm: No acute fracture or dislocation. Mild right elbow joint space narrowing with small marginal osteophytes. Dorsal olecranon enthesophyte. No lytic or blastic osseous lesion. Right hand and wrist: No acute fracture or dislocation. Normal carpal alignment. Mild joint space narrowing with tiny marginal osteophytes at the triscaphe joint. No lytic or blastic osseous lesion. No abnormal soft tissue calcification. XR/XR hand wrist RT IMPRESSION: Right forearm: No acute osseous abnormality. 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 Dorsal olecranon spur. Right hand and wrist: No acute osseous abnormality. 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 Electronically signed by: Michelet Gamble MD 12/23/2023 12:17 AM EDT
--- NOTE | ~2023-12-22 | XR_ITS ---
EXAMINATION: XR FOREARM, RIGHT XR HAND/WRIST, RIGHT CLINICAL INFORMATION: Pain following injury. COMPARISON: None. TECHNIQUE: AP and lateral views of the right forearm. PA, oblique, and lateral views of the right hand and wrist. FINDINGS: Right forearm: No acute fracture or dislocation. Mild right elbow joint space narrowing with small marginal osteophytes. Dorsal olecranon enthesophyte. No lytic or blastic osseous lesion. Right hand and wrist: No acute fracture or dislocation. Normal carpal alignment. Mild joint space narrowing with tiny marginal osteophytes at the triscaphe joint. No lytic or blastic osseous lesion. No abnormal soft tissue calcification. XR/XR forearm RT 2V IMPRESSION: Right forearm: No acute osseous abnormality. 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 Dorsal olecranon spur. Right hand and wrist: No acute osseous abnormality. 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 Electronically signed by: Michelet Gamble MD 12/23/2023 12:17 AM EDT
[2023-12-22 22:39] VITALS: BP 117/83; PULSE 85; RESP 19; TEMP 36.8; O2SAT 99; BMI 33.7
--- NOTE | 2023-12-23 00:10 | ED.EXTPRO ---
HPI - Extremity Problem General Chief complaint: Extremity Injury, Upper Stated complaint: right hand inj Time Seen by Provider: 12/22/23 23:56 Source: patient, RN notes reviewed and old records reviewed Mode of arrival: ambulatory Limitations: no limitations History of Present Illness ED Provider: Breanne MENDOZA Narrative: 43-year-old male presents for evaluation of right wrist pain. Patient reports that he is right-hand dominant. He reports punching a wall about 4 hours prior to arrival. He denies any significant pain to the hand but does have pain to the right wrist He indicates the area of the distal ulna where most of his pain is He reports a history of an infected elbow joint requiring surgical treatment He denies any other medical complaints or concerns His pain is an 8/10. He reports that he took Tylenol prior to arrival with minimal relief Related Data Previous Rx's ?Medication ?Instructions ?Recorded hydrochlorothiazide 50 mg tablet 50 mg PO DAILY #30 tabs 03/29/22 losartan 100 mg tablet 100 mg PO DAILY #30 tabs 03/29/22 cyclobenzaprine 5 mg tablet 5 mg PO TID PRN muscle spasm #10 07/17/23 tabs lidocaine 5 % topical patch 1 patch topical DAILY #15 ea 07/17/23 hydrochlorothiazide 25 mg tablet 25 mg PO DAILY #30 tabs 09/23/23 levofloxacin 500 mg tablet 500 mg PO DAILY #14 tabs 09/23/23 doxycycline hyclate 100 mg tablet 100 mg PO BID 7 days #14 tabs 09/26/23 alfuzosin 10 mg tablet,extended 10 mg PO BEDTIME 90 days #90 tabs 09/28/23 release 24 hr Allergies Allergy/AdvReac Type Severity Reaction Status Date / Time No Known Allergies Allergy Verified 12/22/23 22:41 Review of Systems Constitutional: Constitutional: Denies body ache(s), Denies chills and Denies headache(s) ENT: Denies headache(s) Cardiovascular: Cardiovascular: Denies chest pain and Denies dyspnea Respiratory: Respiratory: Denies cough and Denies dyspnea Gastrointestinal: Gastrointestinal: Denies abdominal pain, Denies nausea and Denies vomiting Musculoskeletal: Musculoskeletal: Reports arthralgias and Reports joint swelling Integumentary/Breasts: Skin/Breast: Denies rash Neurologic: Denies headache(s) [facility] Past Medical History Medical History Arrhythmia HTN (hypertension) Social History Social History Alcohol intake: former Substance Use Type: Marijuana Advance Directives: No Advance Directives Information Provided: No Do you have a plan to hurt others: No Plan Physical Exam Vital Signs: Vital Signs: Last Vital Signs Temp 98.2 F 12/22/23 22:39 Pulse 85 12/22/23 22:39 Resp 19 12/22/23 22:39 BP 117/83 12/22/23 22:39 Pulse Ox 99 12/22/23 22:39 O2 Del Method Room Air 12/22/23 22:39 BMI result Body Mass Index 33.7 Const: General: healthy appearing, comfortable, no acute distress, alert and awake Nutritional Appearance: well nourished Orientation/consciousness: patient oriented x3 HEENT: Head: Yes normocephalic and Yes atraumatic Eyes: Eyelids: Yes eyelids normal Conjunctivae: conjunctivae normal Sclerae: sclerae normal Corneas: corneas normal Pupils: Equal, round and reactive pupils present EOM: EOMs intact bilaterally Neck: Neck: Yes full ROM Resp: Effort & Inspection: normal respiratory effort, able to speak in complete sentences and not labored Skin: General skin exam: elasticity normal Neuro: General: patient oriented x3 Cranial nerves: Yes Equal, round and reactive pupils present and Yes Bilaterally intact EOM present Cognition (Neuro): normal cognition Extrem: Other: The patient has no significant visible abnormality to the right hand or wrist. There is no significant edema, no open wounds. The patient is tender over the right distal ulna on the dorsal surface. He has good range of motion of all of the fingers of the right hand. He has limited range of motion with flexion of the right wrist radial pulses are 2+ and equal, distal sensation and capillary refill are intact Medical Decision Making Medical Decision Making MDM Narrative: 43-year-old male presents for evaluation of right wrist pain after punching a wall. Plan for x-ray of the right hand and wrist. Differential Diagnosis Differential Diagnoses: The differential diagnosis associated with the presentation includes Right wrist sprain Right wrist fracture Contusion Boxer's fracture Independent Interpretation I performed an independent interpretation of an: Plain X-Ray Interpretation: I do not appreciate any obvious displaced fracture of the right hand or wrist Radiology Impression Discussion of test interpretation with radiology: I have reviewed the radiologist's reading. Radiologist Impression: FINDINGS: Right forearm: No acute fracture or dislocation. Mild right elbow joint space narrowing with small marginal osteophytes. Dorsal olecranon enthesophyte. No lytic or blastic osseous lesion. Right hand and wrist: No acute fracture or dislocation. Normal carpal alignment. Mild joint space narrowing with tiny marginal osteophytes at the triscaphe joint. No lytic or blastic osseous lesion. No abnormal soft tissue calcification. XR/XR hand wrist RT IMPRESSION: Right forearm: No acute osseous abnormality. 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 Dorsal olecranon spur. Right hand and wrist: No acute osseous abnormality. 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 Electronically signed by: Michelet Gamble MD 12/23/2023 12:17 AM EDT RP Discharge Plan Discharge Clinical Impression: Right wrist sprain Patient Disposition: Home, Self-Care Instructions: Wrist Sprain (ED) Additional Instructions: Use ibuprofen/Tylenol as needed for pain. Your x-ray did not show any fractures. Elevate the wrist above your heart while resting. You may apply ice to the area every 4 hours for the next 2 days Prescriptions: No Action losartan 100 mg tablet 100 mg PO DAILY Qty: 30 0RF hydrochlorothiazide 50 mg tablet 50 mg PO DAILY Qty: 30 0RF lidocaine 5 % adhesive patch,medicated 1 patch topical DAILY Qty: 15 0RF Rx Instructions: leave on most painful area for up to 12 hrs cyclobenzaprine 5 mg tablet 5 mg PO TID PRN (Reason: muscle spasm) Qty: 10 0RF levofloxacin 500 mg tablet 500 mg PO DAILY Qty: 14 0RF hydrochlorothiazide 25 mg tablet 25 mg PO DAILY Qty: 30 0RF doxycycline hyclate 100 mg tablet 100 mg PO BID 7 Days Qty: 14 0RF alfuzosin 10 mg tablet extended release 24 hr 10 mg PO BEDTIME 90 Days Qty: 90 1RF Rx Instructions: administer after the same meal each day Print Language: Fijian
[2023-12-23 00:49] VITALS: BP 117/83; PULSE 85; RESP 19; TEMP 36.8; O2SAT 99
== END 2023-12-23 00:49 | disposition home or self-care (01) ==
PROVIDERS: Emergency Provider Emergency Medicine
DX: M25.531 Pain in right wrist (principal); S63.501A Unspecified sprain of right wrist, initial encounter; W22.01XA Walked into wall, initial encounter; Y93.9 Activity, unspecified; Y92.9 Unspecified place or not applicable; Y99.9 Unspecified external cause status
CPT/HCPCS: 73090; 73110; 73130; 99283; 99284

== ENCOUNTER 2023-12-29 10:29 | Outpatient (AMB) | payer OTHER, SELFPAY ==
--- NOTE | 2023-12-29 10:36 | A.OFFVIS_ITS ---
Intake Visit Reasons: 3m/PVR/Med Review(alfuzosin) Intake Note: Patient is present for PVR Follow up Urology Med: Alfuzosin Antibiotic Allergy: None Blood Thinner: None Last PVR:16ML Todays PVR: 0 Allergies No Known Allergies Allergy (Verified 12/22/23 22:41) HPI Comments Details: Charbel is a pleasant male. 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 Has been treated with doxycycline Kamara catheter placed for 500 cc Response without alfuzosin PFSH Medical History Arrhythmia HTN (hypertension) Social History Alcohol intake: former Substance Use Type: Marijuana Review of Systems Const Denies chills and Denies fever(s) Card Reports no additional complaints and Denies syncope Resp Denies cough GI Denies abdominal pain and Denies heartburn Reports as per HPI and Denies change in libido Neuro Denies syncope Psych Denies change in libido Endo Denies change in libido Physical Exam Const General: cooperative, healthy appearing, comfortable and no acute distress Orientation/consciousness: patient oriented x3 HEENT Face and sinus: Yes normal facial exam Mouth: moist mucous membranes Neck Neck: Yes normal visual inspection, Yes full ROM and Yes trachea midline Chest Chest palpation & inspection: normal inspection of the chest Resp Effort & Inspection: normal respiratory effort, able to speak in complete sentences and no respiratory distress GI Inspection: Yes normal to inspection Back/Spine/Pelvis Cervical Spine: normal cervical lordosis Thoracic/Lumbar Spine: thoracic and lumbar spine normal to inspection Skin General skin exam: no rashes or lesions noted Neuro General: patient oriented x3, gait normal, tone normal and moves all extremities Extrem General: Yes normal to inspection and Yes capillary refill normal Office Procedures Post Void Residual Post Residual Void Post Void Residual (PVR): 0 [id number]-[id number] Void Residual by ultrasound Assessment & Plan Assessment & Plan (1) Urinary retention with incomplete bladder emptying: Code(s): R33.9 - Retention of urine, unspecified Category: Medical Plan Continue alfuzosin PSA follow-up 12 month Orders: Orders Prostate Specific Antigen 364 Days R33.9 - Retention of urine, unspecified AMB Post Void Residual by ultrasound Today R33.9 - Retention of urine, unspecified Medications: Refilled alfuzosin ER administer after the same meal each day 10 mg PO BEDTIME 90 days 90 tabs 3RF N13.8 - Other obstructive and reflux uropathy, N40.1 - Benign prostatic hyperplasia with lower urinary tract symptoms, R33.9 - Retention of urine, unspecified Patient Instructions: Imaging studies, laboratory and physical exam results were discussed and reviewed in detail. No major barriers to patient understanding were identified. An opportunity to ask questions regarding the treatment plan was provided. All questions were answered. The patient expressed understanding and agreement with the above treatment plan. The patient is aware they should contact our office by phone for worsening of their current condition or the appearance of new urologic symptoms. Compliance is encouraged with any medications and followup testing that is ordered. It is a privilege to participate in the urologic care of your patient. If you have any questions or concerns regarding treatment for the above conditions, or other urologic issues, please do not hesitate to contact me. The office telephone contact is [phone]. This note is constructed using voice recognition software. While every effort has been made to ensure accuracy scoop machine operator errors may have been included. Yours sincerely, Dr Erick Lopes MD, [facility] - Urology Providers of Expert, Compassionate Care for the Genitourinary System Coding Level of Care Code Est Pt Level 3 (68838) Diagnoses Urinary retention with incomplete bladder emptying R33.9 CPT Codes Post Residual Void - PVR CPT Code: 07416-Oixh Void Residual by ultrasound ([id number])
== END 2023-12-29 11:06 | disposition home or self-care (01) ==
PROVIDERS: Visit Provider Urology
DX: R33.9 Retention of urine, unspecified (principal)
CPT/HCPCS: 99213

== ENCOUNTER → 2023-12-29 10:29 | Outpatient (BNVA) | payer OTHER, SELFPAY | PROVIDERS: Visit Provider Urology | DX: R33.9 Retention of urine, unspecified (principal) | CPT/HCPCS: 51798; 99212 ==